=== PATIENT | female | born 1975 | race Caucasian/White ===

== ENCOUNTER → 2023-08-31 10:34 | Outpatient (REF) | payer BC, SELFPAY | LOC: HWRAD 10:34 | PROVIDERS: ATTENDING PHYSICIAN Obstetrics & Gynecology | DX: N93.9 Abnormal uterine and vaginal bleeding, unspecified (principal) | CPT/HCPCS: 76830; 76856 ==

== ENCOUNTER 2023-12-02 06:25 | Day surgery (SDC) | payer BC, SELFPAY ==
[2023-11-29 13:54] LABS: % Basophils 0.9 % (0-2); % Eosinophils 0.9 % (0-6); % Immature Granulocytes 0.4 % (0-0.5); % Lymphocytes 28.6 % (20.5-51.1); % Monocytes 9.3 % (1.7-9.3); % Neutrophils 59.9 % (42.2-75.2); Absolute Basophils 0.1 10^3/uL (0-0.2); Absolute Eosinophils 0.1 10^3/uL (0-0.7); Absolute Lymphocytes 1.6 10^3/uL (1.2-3.4); Absolute Monocytes 0.5 10^3/uL (0.1-0.6); Absolute Neutrophils 3.4 10^3/uL (1.4-6.5); Hematocrit 38.5 % (37.0-47.0); Hemoglobin 12.6 g/dL (12.0-16.0); Mean Corp Hgb Conc. 32.7 g/dL (33.0-37.0); Mean Corpuscular Hgb 26.4 pg (27.0-31.0); Mean Corpuscular Volume 80.5 fL (81.0-99.0); Mean Platelet Volume 10.3 fL (7.4-10.4); Nucleated Red Blood Cells % 0 %; Platelet Count 258 10^3/uL (130-400); Red Blood Cell Count 4.78 10^6/uL (4.20-5.40); Red Cell Dist. Width 13.3 % (11.5-14.5); White Blood Cell Count 5.7 10^3/uL (4.8-10.8)
[2023-11-29 14:06] LABS: INR 1.04; PT 13.4 Sec (11.4-14.6)
[2023-11-29 14:07] LABS: APTT 26.9 Sec (23.4-35.0)
[2023-11-29 14:16] VITALS: BMI 21.1
[2023-12-02] VITALS (9 sets, daily range): BP systolic 94–107; BP diastolic 59–73; BMI 20.6
[2023-12-02] MEDS: NORMOSOL-R 1000 IV (09:05)
[2023-12-02 09:54] LABS: Urine Albumin Negative (Neg - Trace); Urine Bilirubin Negative (Negative); Urine Character Clear (Clear); Urine Color Yellow; Urine Glucose Negative (Negative); Urine Ketone Negative (Negative); Urine Leukocyte Trace (Negative); Urine Nitrite Negative (Negative); Urine Occult Blood Negative (Negative); Urine Urobilinogen Negative (Neg - 1+)
[2023-12-02 13:54] LABS: Urine Red Blood Cell 0-2 /HPF (0-2)
== END 2023-12-02 13:40 | disposition home or self-care (01) ==
LOC: SDS 06:25
PROVIDERS: ATTENDING PHYSICIAN Obstetrics & Gynecology
DX: N85.02 Endometrial intraepithelial neoplasia [EIN] (principal); N85.8 Other specified noninflammatory disorders of uterus; N93.9 Abnormal uterine and vaginal bleeding, unspecified
CPT/HCPCS: 58558; 88305; 36415; 81003; 81015; 85025; 85610; 85730; 87086; 88341; 88342

== ENCOUNTER → 2024-01-13 11:11 | Outpatient (REF) | payer BC, SELFPAY | LOC: HWRAD 11:11 | PROVIDERS: ATTENDING PHYSICIAN Obstetrics & Gynecology Gynecologic Oncology | DX: N85.02 Endometrial intraepithelial neoplasia [EIN] (principal); C54.1 Malignant neoplasm of endometrium | CPT/HCPCS: 71260; 74177; Q9967 ==

== ENCOUNTER → 2024-03-08 11:05 | Outpatient (REF) | payer BC, SELFPAY | LOC: HWRAD 11:05 | PROVIDERS: ATTENDING PHYSICIAN Obstetrics & Gynecology Gynecologic Oncology; FAMILY PHYSICIAN Emergency Medicine | DX: N85.02 Endometrial intraepithelial neoplasia [EIN] (principal); C54.1 Malignant neoplasm of endometrium; Z80.49 Family history of malignant neoplasm of other genital organs; Z15.09 Genetic susceptibility to other malignant neoplasm; Z12.31 Encounter for screening mammogram for malignant neoplasm of breast; Z13.820 Encounter for screening for osteoporosis | CPT/HCPCS: 77080 ==

== ENCOUNTER 2024-10-02 06:26 | Day surgery (SDC) | payer BC, SELFPAY ==
[2024-09-21 13:42] VITALS: BMI 19.4
--- NOTE | 2024-09-26 14:55 | PTCARENOTE ---
Abnormal ECG 09/26/24, reviewed by Dr Velazquez, no further interventions requested.
--- NOTE | 2024-09-30 15:27 | W.CON.GYNONC ---
Chief Complaint
-
EIN
History of Present Illness
48�year�old woman referred to me by Dr Lexy Chanel/ Darion Rios. c/o daily spotting. Off OCP since July 2023.
An ultrasound was done for evaluation of the abnormal bleeding which shows uterus 10.4 cm, endometrial stripe is normal
measuring 4 mm. Right ovary is 3.1 cm, left ovary is 2.7 cm. Left ovary has a simple cyst measuring 1.6 cm. Pap smear completed
October 04, 2022 was negative for Intraepithelial lesion or malignancy, HPV test was negative
Patient was taken to the operating for D&C with MyoSure, curetting of the endometrium shows fragments of disordered Proliferative
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 Uterine curetting show disordered Proliferative phase with tubal metaplasia
and benign endocervical tissue with no evidence of atypia.t in June she had an endometrial biopsy which revealed scant
fragmented weakly proliferative endometrium in a background of stromal breakdown. There was no evidence of atypia or neoplasia
identified
Patient does not have any significant past medical history
Past surgical history is negative
Allergies
seasonal
Medications
estradiol 0.05 mg/24 hr semiweekly transdermal patch apply topically 2 times per
Zyrtec 10 mg capsule as needed
Family history significant for uterine cancer and father does not require BX, she has had chemotherapy radiation and also has had
chronic metastasis which was reported, she is alive and well at 78. She has a maternal aunt with ovarian cancer, maternal aunt with
breast cancer 2 maternal brothers with thyroid cancer.
Patient has personal genetic screening. 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
mutation.
She is , works as a professor at [employer], drinks alcohol regularly, never used tobacco. Denies drug or marijuana
use.
Last mammogram was in 2022
Never had a colonoscopy
Social History
Patient denies ever using tobacco.
Social use of alcohol.
Occupational Status: Current: Professor.
Gynecological History
Age at Menarche 12 years. Her age at first full term was 30 years.
Family Medical History
Mother Uterine
Maternal aunt ovarian
Maternal aunt Breast
Maternal brother thyroid
Medical History
Allergies
Allergies reflect when allergies were last updated in [employer].
latex Allergy (Verified 09/25/24 09:49)
Rash
pollen extracts Allergy (Verified 09/25/24 09:49)
seasonal allergies
Physical Exam
Physical Exam
Pelvic Examination:
External normal labia, urethra, anus.
Vagina: Normal mucosa.
Cervix: normal appearance, no discharge. retroverted, deviated to left side
Uterus: normal size.
Adnexa: No pelvic mass.
RVE: no masses or nodularity
General: Well developed, well nourished patient. In no acute distress.
Neck: No thyromegaly. No cervical lymphadenopathy.
Lungs: Clear to auscultation. Good air movement bilaterally.
Cardiac: Regular rate. Regular rhythm. No murmurs appreciated.
Right Breast: No masses or dimpling. No nipple discharge.
Left Breast: No changes. No masses or dimpling. No nipple discharge.
Abdomen: Abdomen is soft. Non�tender to palpation. Non�distended.
Extremities: No edema.
Hematologic/Lymphatic: No palpable lymphadenopathy.
Musculoskeletal: Normal range of motion. Strength and Tone are normal.
Skin:Non�jaundiced. No petechia. No purpura.
Neurologic: Speech is fluent. Normal gait and station. Cranial nerves intact.
Impression / Plan
-
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
treated with surgical treatment.
The patient does not have any desire for future childbearing. I am reccommending surgery for definitve treatment surgery will be
planned for 10/02/2024
My recommendation is to perform robotic assisted total laparoscopic hysterectomy, total hysterectomy with bilateral
salpingectomy, sentinel lymph node excision for definitive treatment.
We have discussed previously that the patient does have the option to keep her ovaries or remove them
Certainly premature menopause carries elevated risk of cardiovascular disease and we discussed pros and cons of removal. The
patient's chances of developing ovarian cancer appears to be that of general population. Although the exact recommendations for
patients with RAD50 is to not do any preventive surgeries, we have to consider as possibility of elevated risk in the context of the
family history and I may be leaning toward oophorectomy. If they are not removed, perhaps a surveillance strategy should be set up
with TVUS and CA 125 for monitoring.
Informed consent was signed in the office today
Risks including infection bleeding injury to adjacent organs DVT pulmonary embolism and cardiovascular complications were
discussed and reviewed
We discussed use of hormone therapy postoperatively at length, I will go ahead and provide her with transdermal patches of
estrogen. Risk benefits and alternatives were discussed
[2024-10-02] VITALS (12 sets, daily range): BP systolic 109–136; BP diastolic 73–89; BMI 19.4
[2024-10-02] MEDS: NEURONTIN 300 MG PO (13:02)
[2024-10-02] MEDS: TYLENOL 1000 MG PO (13:02)
[2024-10-02] MEDS: CELEBREX 200 MG PO (13:02)
[2024-10-02] MEDS: NORMOSOL-R/PLASMALYTE-A 1000 IV (13:27)
[2024-10-02] MEDS: HEPARIN 5000 UNITS SC (14:08)
--- NOTE | 2024-10-02 17:52 | OR.RPT ---
Operative Report
Operative Report
Date of procedure: October 02, 2024
primary Surgeon: Matt Quesada MD
Assisting Surgeon: Leslie Carson PA-C
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
Post-op Diagnosis: Same pending final pathology
Procedure Performed: Robotic assisted total laparoscopic hysterectomy, bilateral salpingo-oophorectomy, pelvic washings
Anesthesia Type: General Endotracheal, transversus abdominis plane block
Specimen / Cultures: Uterus and cervix with bilateral tubes and ovaries, pelvic washing
Estimated Blood Loss: 50 cc
Complications: None
Operative Findings: Upper abdomen including liver stomach diaphragms right and left paracolic gutter and omentum are within normal limits. Uterus is 8 weeks size bilateral tubes and ovaries are unremarkable. There is no peritoneal implants.
Visualized portions of bowel including appendix are normal
Procedure in detail: This patient was taken to the operating room and placed in supine position, general anesthesia was administered, she was intubated without any difficulty, arms were wrapped in foam and placed along the patient's sides head and
shoulders were properly placed and padded. She was placed in lithotomy position using yellowfin stirrups, appropriate IVs were placed. The patient was prepped and draped, timeout procedure was carried out she received Ancef 2 g, and Flagyl 500 mg.
Next I placed the Love catheter under sterile conditions to drain the bladder. Speculum was used to visualize the cervix and the anterior lip was grasped with single-tooth tenaculum. The cervical canal was dilated, uterine manipulator municipal maintenance worker
type with 3.5 cm LUZMARIA ring was placed over the cervix and vaginal cuff occluder was insufflated. Attention was turned abdominally, Veress needle was inserted in the left upper quadrant insufflation with CO2 gas was completed, direct entry with
trocar in this location was performed visualized afterward with camera in the upper abdomen and surveyed the entire abdomen. Under direct visualization Xi robotic ports were placed along the midline 25 cm cephalad to symphysis pubis right upper
quadrant right lateral abdomen and left lateral abdomen. Tap block was performed injection was done under direct visualization 2 fingerbreadths below the lateral subcostal margins using combination of ropivacaine and Decadron and additional
injection was made right and left lateral abdomen. Patient was placed in deep Trendelenburg and robotic system was docked washings were collected from the pelvis and submitted for cytology. Right and left round ligaments were sealed and divided
anterior and posterior leaves of the broad ligament were dissected open the course of the ureter was visualized bilaterally and a window was created between IP ligaments and ureters. IP ligaments were sealed 3 times and divided tubes and ovaries
were left attached to the uterus. Bladder flap was sharply developed and advanced below the cervicovaginal junction. Uterine arteries were skeletonized sealed and divided remainder of the parametria and uterosacral ligaments were sealed and
divided circumferential incision was made over the LUZMARIA ring until the specimen was completely free and it was removed through the vagina. Vaginal apex was repaired using 0 Vicryl suture ligature at both apices incorporating uterosacral ligaments
for support in a [id number] fashion. After this V-Loc suture was used to close the vaginal cuff starting from right to the left side and back to the right side. We examined all pedicles and found them all to be hemostatic. An additional 3-0
Vicryl [id number] suture was placed to control uterine artery oozing from both sides. The pelvis was irrigated copiously. Robotic system was undocked, pneumoperitoneum was released, laparoscopic ports were removed. All skin incisions were
closed with 4-0 Monocryl in a subcuticular fashion. Dermabond was applied to all incisions. The vagina was inspected and there were no lacerations. Love catheter was removed. Patient was transferred to the PACU in a stable awake and extubated
condition. Counts of laps instruments and needle was correct x 2. I was present and scrubbed for entire procedure as dictated above
Disposition: To PACU stable awake and extubated
[2024-10-02 19:23] LABS: Glucose - Point of Care 119 mg/dl (70-99)
[2024-10-02 19:31] LABS: Mean Corp Hgb Conc. 33.3 g/dL (33.0-37.0); Mean Corpuscular Hgb 26.5 pg (27.0-31.0); Mean Corpuscular Volume 79.5 fL (81.0-99.0); Mean Platelet Volume 10.2 fL (7.4-10.4); Platelet Count 217 10^3/uL (130-400); Red Blood Cell Count 4.53 10^6/uL (4.20-5.40); Red Cell Dist. Width 12.7 % (11.5-14.5); White Blood Cell Count 10.4 10^3/uL (4.8-10.8)
[2024-10-02] MEDS: TYLENOL 650 MG PO (19:49)
--- NOTE | 2024-10-02 19:56 | SUR.PHASEII ---
pt not stable for discharge at this time. taken back to PACU to finish recovery. report given to MARZENA Lu
[2024-10-02] MEDS: ROXICODONE 5 MG PO (20:14)
== END 2024-10-02 20:40 | disposition home or self-care (01) ==
LOC: SDS 06:26
PROVIDERS: ATTENDING PHYSICIAN Obstetrics & Gynecology Gynecologic Oncology; FAMILY PHYSICIAN Emergency Medicine
DX: N85.02 Endometrial intraepithelial neoplasia [EIN] (principal); N84.0 Polyp of corpus uteri; N80.03 Adenomyosis of the uterus; D25.1 Intramural leiomyoma of uterus; N83.8 Other noninflammatory disorders of ovary, fallopian tube and broad ligament; N83.292 Other ovarian cyst, left side
CPT/HCPCS: 58571; 88307; 36415; 82962; 85027; 86850; 86900; 86901; 88112; 93005

== ENCOUNTER 2025-02-25 06:22 | Day surgery (SDC) | payer BC, SELFPAY | END 2025-02-25 08:51 | disposition home or self-care (01) | LOC: GI 06:22 | PROVIDERS: ATTENDING PHYSICIAN Internal Medicine Gastroenterology | DX: Z12.11 Encounter for screening for malignant neoplasm of colon (principal); K64.8 Other hemorrhoids; D12.2 Benign neoplasm of ascending colon | CPT/HCPCS: 45380; 88305 ==